=== PATIENT | male | born 1970 | race Two or more races ===

== ENCOUNTER 2021-01-04 11:39 | Emergency (ER) | payer SELFPAY ==
[~2021-01-04] VITALS: Ht 160 cm; Wt 72.7 kg
[2021-01-04 11:46] VITALS: BP 133/78
[2021-01-04] MEDS ORDERED: IBUPROFEN 200 MG TABLET. PO ONE (12:15)
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
[2021-01-04] MEDS ORDERED: IBUP-1007 PO (13:40)
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
== END 2021-01-04 14:20 | disposition home or self-care (01) ==
LOC: ER 11:39
DX: S90.02XA Contusion of left ankle, initial encounter (principal); S90.32XA Contusion of left foot, initial encounter; W20.8XXA Other cause of strike by thrown, projected or falling object, initial encounter; Y93.89 Activity, other specified; Y92.89 Other specified places as the place of occurrence of the external cause; Y99.8 Other external cause status
CPT/HCPCS: 73610; 73630; 99284